=== PATIENT | male | born 1995 | race Caucasian/White ===

== ENCOUNTER 2016-10-29 07:47 | Emergency (ER) | payer OTHER ==
[2016-10-29 08:51] LABS: HEMOGLOBIN 12.6 gm/dl (14.0-17.5); RED BLOOD COUNT 4.54 M/UL (4.20-5.50); WHITE BLOOD COUNT 6.8 K/UL (4.5-11.0)
[2016-10-29 09:20] LABS: BUN/CREATININE RATIO 21 (0-10)
== END 2016-10-29 10:15 | disposition left against medical advice (07) ==
LOC: ER1 07:47
PROVIDERS: Emergency Medicine
DX: R07.2 Precordial pain (principal); R07.89 Other chest pain; F17.200 Nicotine dependence, unspecified, uncomplicated
CPT/HCPCS: 36415; 71010; 80053; 82550; 82553; 83874; 84484; 85025; 93005; 99285

== ENCOUNTER 2017-01-08 13:43 | Emergency (ER) | payer OTHER | END 2017-01-08 16:00 | disposition home or self-care (01) | LOC: ER1 13:43 | DX: L02.414 Cutaneous abscess of left upper limb (principal); F17.210 Nicotine dependence, cigarettes, uncomplicated; Z88.2 Allergy status to sulfonamides; Z87.898 Personal history of other specified conditions | CPT/HCPCS: 10061; 87070; 87077; 87186; 87205; 99283 ==

== ENCOUNTER 2020-09-27 09:52 | Emergency (ER) | payer SELFPAY ==
[~2020-09-27 09:52] MED LIST: IBUPROFEN600 MG PO
== END 2020-09-27 10:00 | disposition left against medical advice (07) ==
LOC: ER1 09:52
DX: Z53.21 Procedure and treatment not carried out due to patient leaving prior to being seen by health care provider (principal)

== ENCOUNTER 2021-05-04 10:09 | Emergency (ER) | payer MEDICAID | END 2021-05-04 12:18 | disposition home or self-care (01) | LOC: ER1 10:09 | DX: S02.2XXA Fracture of nasal bones, initial encounter for closed fracture (principal); S05.12XA Contusion of eyeball and orbital tissues, left eye, initial encounter; S60.512A Abrasion of left hand, initial encounter; S90.812A Abrasion, left foot, initial encounter; B07.0 Plantar wart; Z88.2 Allergy status to sulfonamides; F17.200 Nicotine dependence, unspecified, uncomplicated; X58.XXXA Exposure to other specified factors, initial encounter | CPT/HCPCS: 70150; 73130; 99283 ==

== ENCOUNTER → 2021-08-13 | Outpatient (CLI) | payer OTHER ==
[2021-08-13 12:14] LABS: HEMOGLOBIN 13.1 gm/dl (14.0-17.5); RED BLOOD COUNT 4.63 M/UL (4.20-5.50); WHITE BLOOD COUNT 7.3 K/UL (4.5-11.0)
[2021-08-14 08:13] LABS: A/G RATIO 1.3 (1.2-2.2); ALKALINE PHOSPHATASE, S 109 IU/L (44-121); ALT (SGPT) 142 IU/L (0-44); AST (SGOT) 74 IU/L (0-40); BILIRUBIN, TOTAL <0.2 mg/dL (0.0-1.2); BUN 10 mg/dL (6-20); BUN/CREATININE RATIO 12 (9-20); CALCIUM, SERUM 9.4 mg/dL (8.7-10.2); CARBON DIOXIDE, TOTAL 26 mmol/L (20-29); CHLORIDE, SERUM 104 mmol/L (96-106); CREATININE, SERUM 0.81 mg/dL (0.76-1.27); EGFR IF AFRICN AM 140 (>59); EGFR IF NONAFRICN AM 121 (>59); GLOBULIN, TOTAL 3.1 g/dL (1.5-4.5); GLUCOSE, SERUM 87 mg/dL (65-99); HBSAG SCREEN Negative (Negative); HEP A AB, IGM Negative (Negative); HEP B CORE AB, IGM Negative (Negative); HEP C VIRUS AB >11.0 (0.0-0.9); HIV AB/P24 AG SCREEN Non Reactive (Non Reactive); POTASSIUM, SERUM 4.3 mmol/L (3.5-5.2); PROTEIN, TOTAL, SERUM 7.2 g/dL (6.0-8.5); SODIUM, SERUM 143 mmol/L (134-144)
== END ==
LOC: LAB 10:44
PROVIDERS: Pediatrics
DX: F11.20 Opioid dependence, uncomplicated (principal)
CPT/HCPCS: 36415; 80053; 80074; 85025; 87389